=== PATIENT | male | born 1975 | race Caucasian/White ===

== ENCOUNTER 2017-09-05 18:41 | Emergency (ER) | payer MEDICAID ==
[2017-09-05 19:59] VITALS: BP 124/81
[2017-09-05] MEDS ORDERED: Clindamycin HCl 150 MG Cap PO ONE (20:11)
--- NOTE | 2017-09-05 20:14 | EDM.PDOC ---
ED HPI GENERAL MEDICAL PROBLEM - General Chief Complaint: ENT Problem Stated Complaint: ABCESS TOOTH Time Seen by Provider: 09/05/17 20:05 Source of Information: Reports: Patient, RN History Limitations: Reports: No Limitations - History of Present Illness INITIAL COMMENTS - FREE TEXT/NARRATIVE: 41 yo male presents with dental pain and L facial swelling over the past couple of days. [place] chilled, but has not measured a fever. Has not seen a dentist in years and has no family doctor. 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 - Related Data Allergies Allergy/AdvReac Type Severity Reaction Status Date / Time NSAIDS (Non-Steroidal Allergy Rash Verified 12/25/15 03:02 Anti-Inflamma Penicillins Allergy Anaphylactic Verified 12/25/15 03:02 Shock Home Meds: Home Meds NK [No Known Home Meds] 12/25/15 [History] Past Medical History HEENT History: Reports: Other (See Below) Other HEENT History: had eye surgery right eye from injury Musculoskeletal History: Reports: Fracture Psychiatric History: Reports: Anxiety, Depression - Infectious Disease History Infectious Disease History: Reports: MRSA - Past Surgical History HEENT Surgical History: Reports: Eye Surgery, Other (See Below) Musculoskeletal Surgical History: Reports: Other (See Below) Social & Family History - Tobacco Use Smoking Status *Q: Never Smoker - Recreational Drug Use Recreational Drug Use: Yes Drug Use in Last 12 Months: Yes Recreational Drug Type: Reports: Marijuana/Hashish Recreational Drug Use Frequency: Socially ED ROS ENT - Review of Systems Review Of Systems: See Below Constitutional: Reports: No Symptoms HEENT: Reports: Dental Pain, Other (L facial swelling). Denies: Ear Discharge, Ear Pain, Eye Discharge Respiratory: Reports: No Symptoms Cardiovascular: Reports: No Symptoms Endocrine: Reports: No Symptoms GI/Abdominal: Reports: No Symptoms : Reports: No Symptoms Musculoskeletal: Reports: No Symptoms Skin: Reports: No Symptoms ED EXAM, ENT - Physical Exam Exam: See Below Exam Limited By: No Limitations General Appearance: Alert, WD/WN, No Apparent Distress Eye Exam: Bilateral Eye: Normal Inspection Ears: Normal External Exam, Normal Canal, Hearing Grossly Normal, Normal TMs Nose: Normal Inspection, Normal Mucousa, No Blood Mouth/Throat: Dental Abcess, Dental Pain, Dental Tenderness, Other (Extensive dental decay). No: Throat Pain, Throat Swelling, Tongue Swelling, Tonsillar Erythema, Tonsillar Exudates, Tonsillar Swelling, Trismus, Uvular Deviation, Uvular Edema Head: Atraumatic, Normocephalic, Facial Swelling (left side) Neck: Normal Inspection, Supple, Non-Tender Respiratory/Chest: No Respiratory Distress, Lungs Clear, Normal Breath Sounds, No Accessory Muscle Use Cardiovascular: Regular Rate, Rhythm, No Edema GI/Abdominal: Normal Bowel Sounds, Soft, Non-Tender, No Distention Back: Normal Inspection. No: CVA Tenderness (R), CVA Tenderness (L) Extremities: Normal Inspection, Normal Range of Motion, Non-Tender, No Pedal Edema Neurological: Alert, Oriented, CN II-XII Intact, Normal Cognition, No Motor/ Sensory Deficits Psychiatric: Normal Affect, Normal Mood Skin: Warm, Dry, Intact, Normal Color, No Rash Lymphatic: No Adenopathy Course - Vital Signs Last Recorded V/S: Last Vital Signs Temp 36.1 C 09/05/17 19:58 Pulse 76 09/05/17 19:58 Resp 14 09/05/17 19:58 BP 124/81 09/05/17 19:58 Pulse Ox 96 09/05/17 19:58 - Orders/Labs/Meds Meds: Medications Discontinued Medications Generic Name Dose Route Start Last Admin Trade Name Gustavoq PRN Reason Stop Dose Admin Clindamycin HCl 300 mg 09/05/17 20:11 Cleocin PO 09/05/17 20:12 ONETIME ONE Departure - Departure Time of Disposition: 20:25 Disposition: Home, Self-Care 01 Condition: Fair Clinical Impression: Dental caries, Dental abscess, Dental caries extending into dentin - Discharge Information Referrals: PCP,None [Primary Care Provider] - Forms: ED Department Discharge Additional Instructions: Take clindamycin as directed. Take ibuprofen 600 mg every 6 hrs with food for pain relief. Add hydrocodone or acetaminophen as needed for added relief. See a dentist loretta. Get established with family doctor also.
== END 2017-09-05 20:23 | disposition home or self-care (01) ==
LOC: JP.ED 18:41
DX: K02.9 Dental caries, unspecified (principal); K04.7 Periapical abscess without sinus; Z88.0 Allergy status to penicillin; Z88.8 Allergy status to other drugs, medicaments and biological substances
CPT/HCPCS: 99283; A9270

== ENCOUNTER 2021-10-08 00:16 | Emergency (ER) | payer MEDICAID ==
[2021-10-08 00:32] VITALS: BP 106/72; PULSE 107
[2021-10-08] MEDS ORDERED: Acetaminophen/HYDROcodone 325-5 MG Tab PO ONE (01:13)
[2021-10-08] MEDS ORDERED: Ondansetron 4 MG Tab.DIS PO ONE (01:13)
[2021-10-08] MEDS ORDERED: Cyclobenzaprine 10 MG Tab PO ONE (01:13)
== END 2021-10-08 03:16 | disposition home or self-care (01) ==
LOC: JP.ED 00:16
DX: G44.40 Drug-induced headache, not elsewhere classified, not intractable (principal); T39.1X5A Adverse effect of 4-Aminophenol derivatives, initial encounter; M54.50 Low back pain, unspecified; F15.10 Other stimulant abuse, uncomplicated; F12.10 Cannabis abuse, uncomplicated; Z88.6 Allergy status to analgesic agent; Z88.0 Allergy status to penicillin
CPT/HCPCS: 70450; 99284; A9270; Q0162